=== PATIENT | female | born 1990 | race Caucasian/White ===

== ENCOUNTER 2018-10-20 10:52 | Emergency (ER) | payer MEDICAID ==
[~2018-10-20] VITALS: Wt 80.0 kg
[2018-10-20 10:55] VITALS: RESP 20
[2018-10-20] MEDS ORDERED: ALBUTEROL 0.083% (NEB) 2.5 MG/3 ML AMP HHN STA (11:51)
[2018-10-20] MEDS ORDERED: ACETAMINOPHEN 500 MG TAB PO STA (11:51)
[2018-10-20] MEDS ORDERED: DEXAMETHASONE 4 MG TAB PO ONE (12:00)
[2018-10-20] MEDS ORDERED: ALBU18HF INHALATION (12:50)
[2018-10-20] MEDS ORDERED: ACET-141 PO (12:50)
--- NOTE | 2018-10-20 12:55 | ERD ---
ER Documentation Chief Complaint Chief Complaint SORE THROAT, COUGH X 4 DAYS, NASAL CONGESTION, 21 WEEKS HPI 28-year-old female presents with sore throat, cough and congestion for 4 days. She is 21 weeks by dates. She denies vaginal bleeding or abdominal pain. She has history of asthma. She denies hemoptysis, syncope, calf swelling ROS All systems reviewed and are negative except as per history of present illness. Medications Home Meds Active Scripts Albuterol Sulfate* (Ventolin HFA*) 18 Gm Hfa.aer.ad, 2 PUFF INHALATION Q4H for 7 Days, #1 INHALER Prov:JAMAR TRIANA MD 10/20/18 Acetaminophen* (Acetaminophen*) 500 MG Extra Strength Tablet, 500 MG PO Q4H PRN for PAIN AND OR ELEVATED TEMP, #15 TAB Prov:JAMAR TRIANA MD 10/20/18 PMhx/Soc Medical and Surgical Hx: pt denies Medical Hx, pt denies Surgical Hx Hx Alcohol Use: No Hx Substance Use: No Hx Tobacco Use: No Smoking Status: Never smoker FmHx Family History: No diabetes, No coronary disease, No other Physical Exam Vitals Vital Signs Date Temp Pulse Resp B/P (MAP) Pulse Ox O2 O2 Flow FiO2 Time Delivery Rate 10/20/18 96 110/68 99 Room Air 13:02 (82) 10/20/18 99 20 100 21 12:25 10/20/18 98.1 99 20 136/70 100 10:55 (92) Physical Exam Const: No acute distress Head: Atraumatic Eyes: Normal Conjunctiva ENT: Normal External Ears, Nose and Mouth. TMs normal and nasal congestion. Neck: Full range of motion. No meningismus. Resp: Clear to auscultation bilaterally. Mild forced wheeze without significant wheeze at rest no rales or retractions. Cardio: Regular rate and rhythm, no murmurs Abd: Soft, non tender, non distended. Normal bowel sounds Skin: No petechiae or rashes Back: No midline or flank tenderness Ext: No cyanosis, or edema. No calf swelling or Homans sign. Neur: Awake and alert Psych: Normal Mood and Affect Results 24 hrs Current Medications Medications Dose Sig/Pilar Start Time Status Last (Trade) Ordered Route PRN Stop Time Admin Dose Reason Admin 12 mg ONCE ONCE 10/20/18 DC 10/20/18 Dexamethasone PO 12:00 12:41 (Decadron) 10/20/18 12:01 Albuterol 2.5 mg ONCE STAT 10/20/18 DC 10/20/18 (Proventil HHN 11:51 12:23 0.083% (Neb)) 10/20/18 11:52 500 mg ONCE STAT 10/20/18 DC 10/20/18 Acetaminophen PO 11:51 12:41 (Tylenol 10/20/18 11:52 Tab) Procedures/MDM Patient given albuterol treatment x1 and Decadron 12 mg by mouth. Patient had clear lungs and felt better after observation treatment. Patient has no signs of hypoxemia, respiratory distress, signs of pneumonia, doubt PE. She likely has viral URI with mild wheezing. We will treat with Tylenol, Ventolin, primary care follow-up and return precautions. Patient has no current signs or symptoms of related complications. The patient was stable with no new complaints during the ER course. Clinically, there is no current evidence to suggest meningitis, sepsis, acute abdomen, pneumonia, stroke, acute coronary syndrome, pulmonary embolism, aortic dissection or any other emergent condition appearing to require further evaluation or hospitalization. Patient counseled regarding my diagnostic impression and care plan. Prior to discharge all questions answered. Pt agrees with treatment plan and understands strict return precautions. Pt is instructed to follow up with primary care provider within 24- 48 hours. Precautionary instructions provided including instructions to return to the ER if not improving or for any worsening or changing symptoms or concerns. Departure Diagnosis: Primary Impression: URI, acute Condition: Stable Patient Instructions: Uri, Viral W/ Wheezing (Adult) Additional Instructions: Probablamente un virus que dura 2-4 greene. cheque otro vez en el proximo crystal para mas simptomas- vomito, dolor, ruth ann, problemas con respirando, o con stahl doctor primario. JAMAR TRIANA MD Oct 20, 2018 12:55
[2018-10-20 13:02] VITALS: BP 110/68; PULSE 96
== END 2018-10-20 13:05 | disposition home or self-care (01) ==
LOC: FTE 10:52
DX: O99.512 Diseases of the respiratory system complicating pregnancy, second trimester (principal); J06.9 Acute upper respiratory infection, unspecified; J45.901 Unspecified asthma with (acute) exacerbation; R05 Cough; Z3A.21 21 weeks gestation of pregnancy
CPT/HCPCS: 94664; Z7502; Z7610

== ENCOUNTER 2018-12-14 20:56 | Outpatient (CLI) | payer MEDICAID ==
[~2018-12-14] VITALS: Ht 158.8 cm; Wt 84.1 kg
[~2018-12-14 20:56] MED LIST: ACET-141 PO; ALBU18HF INHALATION
[2018-12-14 21:19] VITALS: Ht 158.8 cm; Wt 84.1 kg
[2018-12-14 21:20] VITALS: BP 113/73; PULSE 102; RESP 17
[2018-12-14] MEDS ORDERED: PREN1TAB13 PO (21:24)
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
--- NOTE | 2018-12-15 05:14 | PN ---
Triage Information Date/Time December 14 2018 Reason for visit: Postcoital bleeding Weeks of Gestation 28 weeks and 2 days /Para 2 para 1 Diabetes: none Hypertention: none Additional information 28-year-old G2, P1 with IUP at 28 weeks and 2 days presents with complaint of postcoital bleeding and some contractions. She had some red blood after wiped herself post coital. She denies any urinary symptoms. She denies any leaking of fluid, decreased movement. Objective Vital Signs Date Temp Pulse Resp B/P (MAP) Pulse Ox O2 O2 Flow FiO2 Time Delivery Rate 12/14/18 98.5 102 17 113/73 Room Air 21:20 (86) Heart Rate: 130's Heart Rate Comments Category 1 and reassuring Contractions: >10 Minutes Apart Exam Appearance: Alert and oriented x4 does not appear to be in any acute distress Abdomen: Soft, gravid, fundal height consider gestational age NST: Category 1 and reassuring BPP: 02/06 TAURUS: 15.6 UA negative VS - Last 72 Hours, by Label Date Temp Pulse Resp B/P (MAP) Pulse Ox O2 O2 Flow FiO2 Time Delivery Rate 12/14/18 98.5 102 17 113/73 Room Air 21:20 (86) Laboratory Tests Test 12/14/18 21:15 Urine Color STRAW Urine Clarity CLEAR Urine pH 6.0 Urine Specific [place] 1.006 Urine Ketones NEGATIVE Urine Nitrite NEGATIVE Urine Bilirubin NEGATIVE Urine Urobilinogen NEGATIVE Urine Leukocyte Esterase NEGATIVE Urine Hemoglobin NEGATIVE Urine Glucose NEGATIVE Urine Total Protein NEGATIVE Results/Medications Results 24 hrs Laboratory Tests Test 12/14/18 21:15 Urine Color STRAW Urine Clarity CLEAR Urine pH 6.0 Urine Specific [place] 1.006 Urine Ketones NEGATIVE Urine Nitrite NEGATIVE Urine Bilirubin NEGATIVE Urine Urobilinogen NEGATIVE Urine Leukocyte Esterase NEGATIVE Urine Hemoglobin NEGATIVE Urine Glucose NEGATIVE Urine Total Protein NEGATIVE Imaging Results PROCEDURE: Ultrasound Biophysical profile with amniotic fluid index CLINICAL INDICATION: Abdominal pain TECHNIQUE: Color and melendrez-scale ultrasound images of an intrauterine gestation were obtained. COMPARISON: US 10/22/2018 FINDINGS: A single live intrauterine gestation is identified in cephalic position with an estimated heart rate of 152 beats per minute. The placenta is posterior. There is no evidence of placental abruption. TAURUS is 15.63 cm. movement 2/2. tone 2/2. breathing movement 2/2. Qualitative AFV 2/2 Total biophysical profile 8/8 IMPRESSION: 02/06 biophysical profile. TAURUS is 15.63 cm. RPTAT: JEFF Disposition: Discharge Assessment/Plan IUP at 28 weeks and 2 days Postcoital spotting Resolved No evidence of labor testing reassuring No evidence of PPROM Patient will be discharged home in stable condition Strict labor precautions discussed with patient with kick count Follow-up with primary OB office within 2 days after discharge from the hospital discussed the patient patient verbalized understanding. All questions were answered to patient with satisfaction. LILIANE SHEPARD MD Dec 15, 2018 05:14
== END 2018-12-15 00:45 | disposition home or self-care (01) ==
LOC: L-D 20:56 → OBT 20:56
PROVIDERS: ATTEND Obstetrics & Gynecology
DX: O26.853 Spotting complicating pregnancy, third trimester (principal); O62.9 Abnormality of forces of labor, unspecified; Z3A.28 28 weeks gestation of pregnancy
CPT/HCPCS: 76818; 81003; Z7500; G0463

== ENCOUNTER 2019-02-17 08:46 | Outpatient (CLI) | payer MEDICAID ==
[~2019-02-17] VITALS: Ht 157.5 cm; Wt 87.7 kg
[~2019-02-17 08:46] MED LIST changes: -ACET-141 PO; -ALBU18HF INHALATION; +PREN1TAB13 PO
[2019-02-17 09:15] VITALS: BP 133/78; PULSE 78; RESP 18; Ht 157.5 cm; Wt 87.7 kg
== END 2019-02-17 11:54 | disposition home or self-care (01) ==
LOC: OBT 08:46 → L-D 08:48 → OBT 11:54
PROVIDERS: ATTEND Obstetrics & Gynecology
DX: O62.9 Abnormality of forces of labor, unspecified (principal); Z3A.37 37 weeks gestation of pregnancy
CPT/HCPCS: G0463

== ENCOUNTER 2019-02-24 13:36 | Inpatient (IN) | payer MEDICAID ==
[~2019-02-24] VITALS: Ht 157.5 cm; Wt 89.5 kg
[~2019-02-24 13:36] MED LIST changes: +METHYLERGONOVINE 0.2 MG INJ ONE; +OXYTOCIN 30 UNITS/LR 500 ML BAG IV ONE
[2019-02-24 14:06] VITALS: Ht 157.5 cm; Wt 89.5 kg
[2019-02-24] MEDS ORDERED: OXYTOCIN 30 UNITS/LR 500 ML IV SCH (14:30)
[2019-02-24] MEDS ORDERED: METHYLERGONOVINE 0.2 MG INJ IM PRN (14:30)
[2019-02-24] MEDS ORDERED: CARBOPROST 250 MCG INJ IM PRN (14:30)
[2019-02-24] MEDS ORDERED: CEFAZOLIN 2 GM/50 ML (PMX) 50 ML IVPB SCH (14:30)
[2019-02-24] MEDS ORDERED: MISOPROSTOL 200 MCG TAB PR PRN (14:30)
[2019-02-24] MEDS ORDERED: OXYTOCIN 30 UNITS/LR 500 ML IV PRN (14:30)
[2019-02-24] MEDS: LACTATED RINGER'S 1,000 ML IV SCH (14:38)
[2019-02-24] MEDS ORDERED: OXYTOCIN 10 UNIT INJ ONE (18:21)
[2019-02-24] MEDS ORDERED: morphine SULFATE/PF (10 MG/10 ML) INJ ONE (18:21)
[2019-02-24] MEDS ORDERED: METOCLOPRAMIDE 10 MG INJ ONE (18:21)
[2019-02-24] MEDS ORDERED: FENTAnyl 50 MCG/ML VIAL ONE (18:21)
[2019-02-24] MEDS ORDERED: KETOROLAC 30 MG INJ ONE (18:50)
[2019-02-24] MEDS ORDERED: HYDROmorphONE 1 MG/5 ML IV SYRINGE IV PRN ×3 (19:00)
[2019-02-24] MEDS ORDERED: IPRATROPIUM (NEB) 0.5 MG/2.5 ML AMP HHN PRN (19:00)
[2019-02-24] MEDS ORDERED: EPHEDrine 25 MG/5 ML SYG IV PRN (19:00)
[2019-02-24] MEDS ORDERED: hydrALAzine 20 MG INJ IV PRN (19:00)
[2019-02-24] MEDS ORDERED: NALOXONE (0.4 MG/ML) INJ IV PRN (19:00)
[2019-02-24] MEDS ORDERED: ONDANSETRON 4 MG INJ IV PRN ×2 (19:00)
[2019-02-24] MEDS ORDERED: LABETALOL HCL 20MG INJ IV PRN (19:00)
[2019-02-24] MEDS ORDERED: MIDAZOLAM 1 MG/ML 2 ML INJ IV PRN (19:00)
[2019-02-24] MEDS ORDERED: NALBUPHINE HCL (10 MG/1 ML) INJ IV PRN (19:00)
[2019-02-24] MEDS ORDERED: KETOROLAC 30 MG INJ IV PRN (19:00)
[2019-02-24] MEDS ORDERED: MEPERIDINE 25 MG INJ IV PRN (19:00)
[2019-02-24] MEDS ORDERED: FENTAnyl 50 MCG/ML VIAL IV PRN ×3 (19:00)
[2019-02-24] MEDS ORDERED: TRIMETHOBENZAMIDE 100 MG/ML VIAL IM PRN ×2 (19:00)
[2019-02-24] MEDS ORDERED: ALBUTEROL 0.083% (NEB) 2.5 MG/3 ML AMP HHN PRN (19:00)
[2019-02-24] MEDS ORDERED: morphine 2 MG INJ IV PRN ×2 (19:00)
[2019-02-24] MEDS ORDERED: DIPHENHYDRAMINE 50 MG INJ IV PRN ×2 (19:00)
[2019-02-24 23:10] VITALS: BP 126/84; PULSE 109; RESP 18
[2019-02-25] VITALS (9 sets, daily range): BP systolic 117–131; BP diastolic 73–88; PULSE 95–120; RESP 18–20
[2019-02-25] MEDS: LACTATED RINGER'S 1,000 ML IV SCH (06:31)
[2019-02-25] MEDS ORDERED: LACTATED RINGER'S 1,000 ML IV SCH (06:44)
[2019-02-25] MEDS ORDERED: OXYTOCIN 30 UNITS/LR 500 ML IV SCH (06:44)
[2019-02-25] MEDS ORDERED: NA PHOSPHATE/BIPHOS 133 ML ENEMA PR PRN (07:00)
[2019-02-25] MEDS ORDERED: NACL 0.9% 3 ML SYG IV SCH (07:00)
[2019-02-25] MEDS ORDERED: METHYLERGONOVINE 0.2 MG INJ IM PRN (07:00)
[2019-02-25] MEDS ORDERED: OXYTOCIN 30 UNITS/LR 500 ML IV PRN (07:00)
[2019-02-25] MEDS ORDERED: MISOPROSTOL 200 MCG TAB PR PRN (07:00)
[2019-02-25] MEDS ORDERED: LANOLIN HPA 1 PKT TOP PRN (07:00)
[2019-02-25] MEDS ORDERED: CARBOPROST 250 MCG INJ IM PRN (07:00)
[2019-02-25] MEDS: HYDROCODONE/APAP (5/325) TAB PO PRN (21:46)
[2019-02-26 03:49] VITALS: BP 112/58; PULSE 107; RESP 18
[2019-02-26] MEDS: IBUPROFEN 800 MG TAB PO SCH ×3 (05:20→22:00)
[2019-02-26 08:00] VITALS: BP 110/67; PULSE 98; RESP 18
[2019-02-26 17:08] VITALS: BP 123/83; PULSE 106; RESP 18
[2019-02-26 20:00] VITALS: BP 124/77; PULSE 97; RESP 18
[2019-02-26] MEDS: HYDROCODONE/APAP (5/325) TAB PO PRN (21:01)
[2019-02-27 04:06] VITALS: BP 114/76; PULSE 95; RESP 18
[2019-02-27] MEDS: IBUPROFEN 800 MG TAB PO SCH ×2 (05:36→13:14)
[2019-02-27 08:20] VITALS: BP 117/83; PULSE 93; RESP 16
[2019-02-27] MEDS ORDERED: MEASLES,MUMPS,RUBELLA VACCINE INJ SC* ONE (09:00)
[2019-02-27] MEDS ORDERED: DIPHTH/TET/ACEL PERTUSS (ADULT) 0.5 ML VIAL IM* ONE (09:00)
== END 2019-02-27 14:25 | disposition home or self-care (01) | DRG 788 ==
LOC: L-D 13:36 → PP1 22:53 → EDSTATUS 03-06 13:35
PROVIDERS: ADMIT Obstetrics & Gynecology; ATTEND Obstetrics & Gynecology
PROC: 10D00Z1 Extraction of Products of Conception, Low, Open Approach (ICD-10-PCS; principal; 2019-02-24 18:00)
DX: O65.5 Obstructed labor due to abnormality of maternal pelvic organs (principal); O34.211 Maternal care for low transverse scar from previous cesarean delivery; Z3A.38 38 weeks gestation of pregnancy; Z37.0 Single live birth
CPT/HCPCS: 85025; 85610; 85730; 86592; 86850; 86900; 86901; 87340; 88307; 90715; 99464; J0690; J1885; J2210; J2274; J2590; J2765; J3010; J7120